=== PATIENT | female | born 1930 | race Caucasian/White ===

== ENCOUNTER 2017-05-16 09:47 | Emergency (ER) | payer MEDICARE, MEDICAID ==
[~2017-05-16 09:47] MED LIST: ACIDOPHILUS LAC1 CAP PO; ARICEPT10 MG PO; ATIVAN0.5 MG PO; DEPAKOTE SPRIN125 MG PO; FLORASTOR250 MG PO; LEXAPRO5 MG PO; NAMENDA XR28 MG PO; REMERON15 MG PO; TRAZODONE HCL50 MG PO; VITAMIN D5000 UNIT PO
== END 2017-05-16 15:18 | disposition home or self-care (01) ==
LOC: D.ER 09:47
DX: S00.83XA Contusion of other part of head, initial encounter (principal); W18.2XXA Fall in (into) shower or empty bathtub, initial encounter; Y93.E1 Activity, personal bathing and showering; Y92.129 Unspecified place in nursing home as the place of occurrence of the external cause; G30.9 Alzheimer's disease, unspecified; F02.80 Dementia in other diseases classified elsewhere, unspecified severity, without behavioral disturbance, psychotic disturbance, mood disturbance, and anxiety